=== PATIENT | male | born 1990 | race Two or more races ===

== ENCOUNTER 2022-04-09 17:20 | Emergency (ER) | payer OTHER ==
[~2022-04-09] VITALS: Ht 182.9 cm; Wt 109.0 kg
[2022-04-09 17:34] VITALS: BP 136/77
[2022-04-09] MEDS ORDERED: KETOROLAC TROMETH 30 MG/ML 1ML VIAL IV ONE (17:45)
[2022-04-09] MEDS ORDERED: SODIUM CHLORIDE 0.9% 1,000 ML IV ONE (17:45)
[2022-04-09 18:36] LABS: Alcohol, Urine < 3.0 mg/dL (0-10); Amphetamine Screen, Urine NEGATIVE (NEGATIVE); Barbiturate Scree,Urine NEGATIVE (NEGATIVE); Benzodiazephine Screen, Urine NEGATIVE (NEGATIVE); Cannabinoid Screen, Urine NEGATIVE (NEGATIVE); Cocaine Screen, Urine NEGATIVE (NEGATIVE); Opiate Scree,Urine NEGATIVE (NEGATIVE); Phencyclidine Screen, Urine NEGATIVE (NEGATIVE)
== END 2022-04-09 19:02 | disposition left against medical advice (07) ==
LOC: ER 17:20
DX: R10.9 Unspecified abdominal pain (principal); Z53.29 Procedure and treatment not carried out because of patient's decision for other reasons
CPT/HCPCS: 80307